=== PATIENT | male | born 1970 | race Hispanic/Latino ===

== ENCOUNTER 2021-09-26 09:18 | Emergency (ER) | payer OTHER, SELFPAY ==
[2021-09-26] MEDS ORDERED: IBUPROFEN 200 MG TAB PO ONE (09:56)
--- NOTE | 2021-09-26 10:04 | EDPHYS ---
Physician Documentation [facility] Name: Adrian Bass Age: 51 yrs Sex: Male : 1970 Arrival Date: 09/26/2021 Time: 09:20 Bed 14 Private MD: ED Physician Sadiq Elizabeth HPI: 09/26 09:55 This 51 yrs old Male presents to ER via EMS with complaints of Finger Injury. [facility] 09:55 Trauma demographics: County: The injury occurred in [place]. Mechanism of injury: [facility] twisted. Associated injuries: The patient sustained dorsal aspect of middle phalanx of left little finger. Historical: - Allergies: 09:23 No Known Allergies; ap3 - Home Meds: 09:23 None [Active]; ap3 - PMHx: 09:23 None; ap3 - Immunization history:: Client reports receiving the 2nd dose of the Covid vaccine. - Social history:: Smoking status: Patient reports the use of cigarette tobacco products, denies chronic smoking, but will smoke occasionally. - Family history:: not pertinent. ROS: 09:55 Constitutional: Negative for fever, chills, and weight loss, Eyes: Negative for injury, melba pain, redness, and discharge, ENT: Negative for injury, pain, and discharge, Neck: Negative for injury, pain, and swelling, Cardiovascular: Negative for chest pain, palpitations, and edema, Respiratory: Negative for shortness of breath, cough, wheezing, and pleuritic chest pain, Abdomen/GI: Negative for abdominal pain, nausea, vomiting, diarrhea, and constipation, Back: Negative for injury and pain, : Negative for injury, bleeding, discharge, and swelling, Skin: Negative for injury, rash, and discoloration, Neuro: Negative for headache, weakness, numbness, tingling, and seizure, Psych: Negative for depression, anxiety, suicide ideation, homicidal ideation, and hallucinations, Allergy/Immunology: Negative for hives, rash, and allergies, Endocrine: Negative for neck swelling, polydipsia, polyuria, polyphagia, and marked weight changes, Hematologic/Lymphatic: Negative for swollen nodes, abnormal bleeding, and unusual bruising. 09:55 MS/extremity: Positive for injury or acute deformity, pain, tenderness, of the dorsal aspect of middle phalanx of left little finger. Exam: 09:55 Constitutional: This is a well developed, well nourished patient who is awake, alert, melba and in no acute distress. Head/Face: Normocephalic, atraumatic. Eyes: Pupils equal round and reactive to light, extra-ocular motions intact. Lids and lashes normal. Conjunctiva and sclera are non-icteric and not injected. Cornea within normal limits. Periorbital areas with no swelling, redness, or edema. ENT: Nares patent. No nasal discharge, no septal abnormalities noted. Tympanic membranes are normal and external auditory canals are clear. Oropharynx with no redness, swelling, or masses, exudates, or evidence of obstruction, uvula midline. Mucous membranes moist. Neck: Trachea midline, no thyromegaly or masses palpated, and no cervical lymphadenopathy. Supple, full range of motion without nuchal rigidity, or vertebral point tenderness. No Meningismus. Chest/axilla: Normal chest wall appearance and motion. Nontender with no deformity. No lesions are appreciated. Cardiovascular: Regular rate and rhythm with a normal S1 and S2. No gallops, murmurs, or rubs. Normal PMI, no JVD. No pulse deficits. Respiratory: Lungs have equal breath sounds bilaterally, clear to auscultation and percussion. No rales, rhonchi or wheezes noted. No increased work of breathing, no retractions or nasal flaring. Abdomen/GI: Soft, non-tender, with normal bowel sounds. No distension or tympany. No guarding or rebound. No evidence of tenderness throughout. Back: No spinal tenderness. No costovertebral tenderness. Full range of motion. Male : Normal genitalia with no discharge or lesions. Skin: Warm, dry with normal turgor. Normal color with no rashes, no lesions, and no evidence of cellulitis. Neuro: Awake and alert, GCS 15, oriented to person, place, time, and situation. Cranial nerves II-XII grossly intact. Motor strength 5/5 in all extremities. Sensory grossly intact. Cerebellar exam normal. Normal gait. Psych: Awake, alert, with orientation to person, place and time. Behavior, mood, and affect are within normal limits. 09:55 Musculoskeletal/extremity: Extremities: noted in the dorsal aspect of middle phalanx of left little finger and palmar aspect of middle phalanx of left little finger: decreased ROM, pain, tenderness. Vital Signs: 09:20 BP 158 / 100; Pulse 90; Resp 18; Temp 98.9(O); Pulse Ox 98% on R/A; Weight 61.23 kg; ap3 Height 5 ft. 6 in. (167.64 cm); 09:35 BP 149 / 97; Pulse 92; Resp 17; Pulse Ox 98% on R/A; ap3 10:23 BP 141 / 86; Pulse 77; Pulse Ox 99% on R/A; ap3 09:20 Body Mass Index 21.79 (61.23 kg, 167.64 cm) ap3 Procedures: 09:58 Reduction: of the PIP of left little finger, using traction, manipulation. melba MDM: 09:23 Patient medically screened. [facility] 09:58 Data reviewed: vital signs, nurses notes, radiologic studies, plain films. Data melba interpreted: monitoring and evaluation advisor: not applicable for this patient encounter. rate is 92 beats/min, rhythm is regular, Pulse oximetry: on room air is 98 %. Test interpretation: by ED physician or midlevel provider: plain radiologic studies. 09/26 09:55 Order name: Hand Left 3 View XRAY [facility] 09/26 09:55 Order name: Splint; Complete Time: 10:13 melba 09/26 09:55 Order name: Ice pack; Complete Time: 10:13 [facility] Administered Medications: 10:13 Drug: Motrin (ibuprofen) 600 mg Route: PO; ap3 Disposition Summary: 09/26/21 10:03 Discharge Ordered Location: Home melba Problem: new melba Symptoms: have improved melba Condition: Stable melba Diagnosis - Dislocation of unspecified interphalangeal joint of left little finger, initial melba encounter - Nondisplaced fracture of proximal phalanx of left little finger melba Followup: melba - With: Private Physician - When: 2 - 3 days - Reason: Recheck today's complaints, Continuance of care, Re-evaluation by your physician Followup: melba - With: Shailesh Mota MD - When: 2 - 3 days - Reason: Recheck today's complaints, Re-evaluation by your physician Discharge Instructions: - Discharge Summary Sheet melba - Finger or Thumb Dislocation melba - Finger or Thumb Dislocation, [id number] melba - Finger Fracture, Adult melba - Finger Fracture, Adult, [id number] melba Forms: - Medication Reconciliation Form melba - Thank You Letter melba - Antibiotic Education melba - Prescription Opioid Use melba Prescriptions: - Ibuprofen 600 mg Oral Tablet - take 1 tablet by ORAL route every 6 hours As needed take with food; 20 tablet; melba Refills: 0, Product Selection Permitted Signatures: Dispatcher [employer] Sadiq Gordon MD MD cha Prokisch, Amanda, RN RN ap3
--- NOTE | 2021-09-26 10:04 | ER ---
Nurse's Notes [facility] Name: Adrian Bass Age: 51 yrs Sex: Male : 1970 Arrival Date: 09/26/2021 Time: 09:20 Bed 14 Private MD: Diagnosis: Dislocation of unspecified interphalangeal joint of left little finger, initial encounter;Nondisplaced fracture of proximal phalanx of left little finger Presentation: 09/26 09:20 Chief complaint: EMS states: they were called to a local apartment complex for a [employer] employee who had injured her left pinky finger on machinery. Coronavirus screen: At this time, the client does not indicate any symptoms associated with coronavirus-19. Ebola Screen: No symptoms or risks identified at this time. Initial Sepsis Screen: Does the patient meet any 2 criteria? No. Patient's initial sepsis screen is negative. Does the patient have a suspected source of infection? No. Patient's initial sepsis screen is negative. Risk Assessment: Do you want to hurt yourself or someone else? Patient reports no desire to harm self or others. Onset of symptoms was September 26, 2021. 09:20 Method Of Arrival: EMS: [facility] 09:20 Acuity: AMANDA 4 ap3 09:22 Care prior to arrival: IV initiated. 18 GA, in the right antecubital area. ap3 Triage Assessment: 09:25 General: Appears in no apparent distress. Behavior is calm, cooperative. Injury ap3 Description: Deformity sustained to left little finger. Historical: - Allergies: 09:23 No Known Allergies; ap3 - Home Meds: 09:23 None [Active]; ap3 - PMHx: 09:23 None; ap3 - Immunization history:: Client reports receiving the 2nd dose of the Covid vaccine. - Social history:: Smoking status: Patient reports the use of cigarette tobacco products, denies chronic smoking, but will smoke occasionally. - Family history:: not pertinent. Screenin:24 Abuse screen: Denies threats or abuse. Nutritional screening: No deficits noted. ap3 Tuberculosis screening: No symptoms or risk factors identified. Fall Risk None identified. Assessment: 09:23 General: Appears in no apparent distress. comfortable, Behavior is calm, cooperative. ap3 Pain: Complains of pain in left little finger Pain does not radiate. Pain currently is 5 out of 10 on a pain scale. Pain began suddenly. Neuro: Level of Consciousness is awake, alert, obeys commands, Oriented to person, place, time, situation. Cardiovascular: Capillary refill < 3 seconds Patient's skin is warm and dry. Respiratory: Airway is patent Respiratory effort is even, unlabored, Respiratory pattern is regular, symmetrical. Musculoskeletal: Bony deformity noted of left little finger. Vital Signs: 09:20 BP 158 / 100; Pulse 90; Resp 18; Temp 98.9(O); Pulse Ox 98% on R/A; Weight 61.23 kg; ap3 Height 5 ft. 6 in. (167.64 cm); 09:35 BP 149 / 97; Pulse 92; Resp 17; Pulse Ox 98% on R/A; ap3 10:23 BP 141 / 86; Pulse 77; Pulse Ox 99% on R/A; ap3 09:20 Body Mass Index 21.79 (61.23 kg, 167.64 cm) ap3 ED Course: 09:20 Patient arrived in ED. ap3 09:22 Triage completed. ap3 09:23 Sadiq Elizabeth MD is Attending Physician. melba 09:25 Arm band placed on right wrist. ap3 09:25 Patient has correct armband on for positive identification. Bed in low position. Call ap3 light in reach. Side rails up X2. Pulse ox on. NIBP on. Door closed. Noise minimized. 09:35 Rachna Carrera, LAURA is Primary Nurse. ap3 10:00 Shailesh Mota MD is Referral Physician. melba 10:01 Xray at bedside. ap3 10:07 Hand Left 3 View XRAY In Process Unspecified. EDMS 10:23 No provider procedures requiring assistance completed. IV discontinued, intact, ap3 bleeding controlled, No redness/swelling at site. Pressure dressing applied. Administered Medications: 10:13 Drug: Motrin (ibuprofen) 600 mg Route: PO; ap3 Outcome: 10:03 Discharge ordered by . melba 10:23 Discharged to home ambulatory, with family. ap3 10:23 Condition: good 10:23 Discharge instructions given to patient, family, Instructed on discharge instructions, follow up and referral plans. medication usage, Demonstrated understanding of instructions, follow-up care, medications, Prescriptions given X 1. 10:24 Patient left the ED. ap3 Signatures: Dispatcher [employer] EDSadiq Salvador MD MD cha Prokisch, Amanda, RN RN ap3
--- NOTE | 2021-09-26 10:20 | RAD REPORT ---
EXAM DESCRIPTION: RAD - Hand Left 3 View - 09/26/2021 10:07 am CLINICAL HISTORY: Pain;Deformity COMPARISON: No comparisons FINDINGS: No acute fracture. No malalignment. No significant focal degenerative changes. IMPRESSION: No acute osseous abnormality involving the left hand.
[2021-09-26 10:29] VITALS: TEMP 98.9
[2021-09-26 10:32] VITALS: BP 141/86; O2SAT 99
== END 2021-09-26 10:24 | disposition home or self-care (01) ==
LOC: ER 09:18
PROC: 0PSVXZZ Reposition Left Finger Phalanx, External Approach (ICD-10-PCS; principal; 2021-09-26)
DX: S62.647A Nondisplaced fracture of proximal phalanx of left little finger, initial encounter for closed fracture (principal); X50.1XXA Overexertion from prolonged static or awkward postures, initial encounter; Y92.89 Other specified places as the place of occurrence of the external cause; F17.210 Nicotine dependence, cigarettes, uncomplicated
CPT/HCPCS: 99284